=== PATIENT | male | born 1985 | race Asian ===

== ENCOUNTER 2017-04-01 01:07 | Emergency (ER) | payer MEDICAID ==
[~2017-04-01] VITALS: Ht 180.3 cm; Wt 70.0 kg
[2017-04-01] MEDS ORDERED: MAGNESIUM/ALUMINUM HYDROXIDE/SIMETHICONE 30ML UDC PO ONE (04:00)
[2017-04-01] MEDS ORDERED: FAMOTIDINE 20MG TABLET PO ONE (04:00)
[2017-04-01 04:25] VITALS: BP 120/70
== END 2017-04-01 05:30 | disposition home or self-care (01) ==
LOC: ER 02:21
DX: K21.9 Gastro-esophageal reflux disease without esophagitis (principal); F17.200 Nicotine dependence, unspecified, uncomplicated
CPT/HCPCS: 93005; 99283; Z7610

== ENCOUNTER 2017-09-11 14:32 | Emergency (ER) | payer MEDICAID ==
[~2017-09-11] VITALS: Ht 180.3 cm; Wt 75.0 kg
[2017-09-11 16:28] VITALS: BP 118/46
[2017-09-11] MEDS ORDERED: TETRACAINE 0.5% OPHTH DROPS 4ML OP ONE (16:30)
[2017-09-11] MEDS ORDERED: FLUORESCEIN SODIUM 1MG/STRIP OP ONE (16:30)
== END 2017-09-11 17:05 | disposition home or self-care (01) ==
LOC: ER 15:44
DX: H10.029 Other mucopurulent conjunctivitis, unspecified eye (principal)
CPT/HCPCS: 99283

== ENCOUNTER → 2017-12-16 | Emergency (ER) | payer MEDICAID ==
[~2017-12-16] VITALS: Ht 175.3 cm; Wt 72.0 kg
[2017-12-16 19:14] VITALS: BP 116/78
== END ==
LOC: ER 16:43
DX: R10.13 Epigastric pain (principal); Z53.21 Procedure and treatment not carried out due to patient leaving prior to being seen by health care provider